=== PATIENT | female | born 1950 | race Caucasian/White ===

== ENCOUNTER 2019-12-17 10:31 | Outpatient (CLI) | payer MEDICARE, SELFPAY ==
--- NOTE | ~2019-12-17 | XR_ITS ---
EXAMINATION: XR lumbar spine 2-3V DATE: 12/17/2019 11:19 INDICATION: Age-related osteoporosis TECHNIQUE: Anteroposterior and lateral views of the lumbar spine, and cone-down lateral view of the l umbosacral junction were obtained. COMPARISON: CT, 02/05/2014 FINDINGS: There is no fracture, dislocation, or subluxation. The vertebral body heights and alignment are normal. There is mild loss of intervertebral disc space height throughout the lumbar spine. Ther e is severe facet osteoarthritis of the lower lumbar spine. The bowel gas pattern is normal. IMPRESSION: 1. Mild to moderate lumbar spondylosis without acute findings or significant interval change. Reviewed, dictated and finalized at location A. IMPRESSION: 1. Mild to moderate lumbar spondylosis without acute findings or significant in terval change.
--- NOTE | ~2019-12-17 | XR_ITS ---
EXAMINATION: XR thoracic spine 2V DATE: 12/17/2019 11:19 INDICATION: Age-related osteoporosis without pathological fracture TECHNIQUE: AP, lateral and lateral swimmer's views of the thoracic spine were obtained. COMPARISON: 09/27/2017 FINDINGS: There is mild thoracic dextrocurvature. There is no fracture. Vertebral body alignment is n ormal. There is mild loss of intervertebral disc space height in the midthoracic spine. Small degener ative osteophytes project from the anterior endplates of multiple vertebral bodies. Moderate cervical spondylosis is also noted. IMPRESSION: 1. Moderate thoracic spondylosis without acute findings. Reviewed, dictated and finalized at location A.
== END 2019-12-17 10:32 | disposition home or self-care (01) ==
LOC: ANHIMG 10:46
PROVIDERS: PCP Family Medicine
DX: M81.0 Age-related osteoporosis without current pathological fracture (principal); M47.896 Other spondylosis, lumbar region; M47.894 Other spondylosis, thoracic region
CPT/HCPCS: 72070; 72100

== ENCOUNTER → 2020-11-16 12:47 | Outpatient (CLI) | payer MEDICARE, SELFPAY ==
--- NOTE | ~2020-11-16 | MM_ITS ---
EXAMINATION: MM screening [facility] BI w maryse HISTORY: Screening TECHNIQUE: Craniocaudal and mediolateral oblique 3-D tomosynthesis images were obtained and synthetic 2-D images were generated. CAD analysis was submitted and interpreted. COMPARISON: Comparison to multiple prior studies sequentially, with oldest reviewed study dated 08/14. BREAST PARENCHYMAL COMPOSITION: The breasts are heterogeneously dense, which may obscure small masses . FINDINGS: There is no evidence of suspicious mass, calcification, or architectural distortion to sugg est malignancy in either breast. There has been no suspicious interval change. IMPRESSION: 1. No mammographic evidence of malignancy. 2. Recommend routine screening mammography in one year. BI-RADS Category 1: Negative Reviewed, dictated and finalized at location A.
== END ==
PROVIDERS: Visit Provider Obstetrics & Gynecology
DX: Z12.31 Encounter for screening mammogram for malignant neoplasm of breast (principal)
CPT/HCPCS: 77063; 77067

== ENCOUNTER → 2022-02-08 12:28 | Outpatient (CLI) | payer MEDICARE, SELFPAY ==
--- NOTE | ~2022-02-08 | MM_ITS ---
EXAMINATION: MM screening [facility] BI w maryse HISTORY: Screening TECHNIQUE: Craniocaudal and mediolateral oblique 3-D tomosynthesis images were obtained and synthetic 2-D images were generated. CAD analysis was submitted and interpreted. COMPARISON: Comparison to multiple prior studies sequentially, with oldest reviewed study dated 09/2012. BREAST PARENCHYMAL COMPOSITION: The breasts are heterogeneously dense, which may obscure small masses . FINDINGS: There is no evidence of suspicious mass, calcification, or architectural distortion to sugg est malignancy in either breast. There has been no suspicious interval change. IMPRESSION: 1. No mammographic evidence of malignancy. 2. Recommend routine screening mammography in one year. BI-RADS Category 1: Negative Reviewed, dictated and finalized at location A.
== END ==
PROVIDERS: PCP Nurse Practitioner Obstetrics & Gynecology; Visit Provider Nurse Practitioner Obstetrics & Gynecology
DX: Z12.31 Encounter for screening mammogram for malignant neoplasm of breast (principal)
CPT/HCPCS: 77063; 77067

== ENCOUNTER 2022-11-15 01:33 | Day surgery (SDC) | payer MEDICARE, SELFPAY ==
[2022-10-29 13:35] VITALS: BMI 26.4
[2022-11-15 07:53] VITALS: BP 144/78; PULSE 83; RESP 18; TEMP 36.5; O2SAT 98
[2022-11-15] MEDS: LACTATED RINGERS 1,000 ML 150 ML IV CONT (08:05)
--- NOTE | 2022-11-15 08:20 | P.HP_ITS ---
History of Present Illness History of Present Illness Consent: Risks, benefits, and alternatives have been discussed and questions answered. Patient agrees to proceed with procedure. Chief complaint: neoplasm screening Narrative: Prema Torres is a 72 year old female Presents for screening colonoscopy. Patient's current weight appetite and bowel movements are normal. She denies abdominal pain. She has had no bleeding. Family history is noncontributory. Previous colonoscopy was unremarkable. Patient does report a prior history of diverticulitis that is resolved with no residual abdominal pain. Review of Systems Review of Systems: Review of systems noncontributory. [facility] Family History Family History (System 03/08/20 @ 10:01 by Phuong Todd) Grandparent Family history of malignant neoplasm Social History Social History (System 03/08/20 @ 10:01 by Phuong Todd) Smoking packs per day: 1 Smoking cigarettes per day: 20.0 Years smoked: 10 Smoking pack-years: 10.00 Smoking status: Former smoker Tobacco type: cigarettes Second hand tobacco smoke exposure: No Smoking end date: 06/17/82 Alcohol intake: current Alcohol use details: 1-wine on occasion Substance use: never Substance use type: does not use Living arrangements: with family Spiritual care concerns: No Meds Home Medications and Allergies Home Medications Medication Instructions Recorded Confirmed Type Vitamin D3 2,000 mg PO DAILY 10/29/22 10/29/22 History magnesium 400 mg PO DAILY 10/29/22 10/29/22 History Allergies Allergy/AdvReac Type Severity Reaction Status Date / Time Sulfa (Sulfonamide Allergy Unknown Skin Verified 11/15/22 07:52 Antibiotics) irritation nickel Allergy Rash Verified 11/15/22 07:52 Vital Signs Vital Signs - 24 hr 11/15/22 07:53 Temperature 97.7 F Pulse Rate 83 Respiratory Rate 18 Blood Pressure 144/78 H Pulse Oximetry 98 Oxygen Delivery Room Air Exam Narrative: Physical exam reveals patient to be alert. Vital signs stable. HEENT exam is unremarkable. Patient is anicteric. Lungs are clear to auscultation and percussion. Heart is without murmur or extra sounds. Abdomen bowel sounds are present soft nontender with no organomegaly. Digital external rectal exam is normal Assessment and Plan Assessment and plan (1) Encounter for screening colonoscopy: Code(s): Z12.11 - Encounter for screening for malignant neoplasm of colon Status: Acute Assessment and Plan: patient presents today for screening colonoscopy. She appears to be at average risk for colon polyps. Further recommendations may be given after endoscopy.
--- NOTE | 2022-11-15 08:55 | P.PNAN_ITS ---
Anes - Initial Pre Proc Eval Procedure: Operation Date: 11/15/22 09:15 Proposed Procedures p Screening Colonoscopy - Mckinley Thompson MD Date/Time: 11/15/22 08:55 Surgeon: Mckinley Thompson MD Pre Op Diagnosis: neoplasm screening Patient Data Age: 72 Gender: F Height: 1.63 m Weight: 71.2 kg Last Vital Signs Temp 97.7 F 11/15/22 07:53 Pulse 83 11/15/22 07:53 Resp 18 11/15/22 07:53 BP 144/78 H 11/15/22 07:53 Pulse Ox 98 11/15/22 07:53 O2 Del Method Room Air 11/15/22 07:53 Allergies Allergy/AdvReac Type Severity Reaction Status Date / Time Sulfa (Sulfonamide Allergy Unknown Skin Verified 11/15/22 07:52 Antibiotics) irritation nickel Allergy Rash Verified 11/15/22 07:52 Home Medications Medication Instructions Recorded Confirmed Type Vitamin D3 2,000 mg PO DAILY 10/29/22 10/29/22 History magnesium 400 mg PO DAILY 10/29/22 10/29/22 History Patient hx anesthesia problems: none Family hx anesthesia problems: none Results Review: All pre-operative results and documents have been reviewed as part of the pre- operative evaluation. [facility] Family History Family History (System 03/08/20 @ 10:01 by Phuong Todd) Grandparent Family history of malignant neoplasm Social History Social History (System 03/08/20 @ 10:01 by Phuong Todd) Smoking packs per day: 1 Smoking cigarettes per day: 20.0 Years smoked: 10 Smoking pack-years: 10.00 Smoking status: Former smoker Tobacco type: cigarettes Second hand tobacco smoke exposure: No Smoking end date: 06/17/82 Alcohol intake: current Alcohol use details: 1-wine on occasion Substance use: never Substance use type: does not use Living arrangements: with family Spiritual care concerns: No Anes - Eval Final PreProcedure Day of Procedure 11/15/22 08:55 Patient weight: normal Heart: regular rate and rhythm Lungs: clear to auscultation Airway: Mallampati scale class II Neurological: alert and oriented Last oral intake: >/= 8 hours ASA classification: II Emergent: no Anesthetic plan: proceed Anesthesia type and monitoring: general GIVS and standard monitoring Results Review: All pre-operative results and documents have been reviewed as part of the pre- operative evaluation. Informed Consent: The patient's anesthetic plan and its attendant risks and benefits were discussed with the patient/family/POA. Questions were solicited and answers provided to the satisfaction of the patient/family/POA.
[2022-11-15 09:27] VITALS: BP 123/50; PULSE 65; RESP 20; O2SAT 98
[2022-11-15 09:37] VITALS: BP 132/73; PULSE 71; RESP 17; O2SAT 97
[2022-11-15 09:47] VITALS: BP 140/73; PULSE 68; RESP 12; O2SAT 97
== END 2022-11-15 09:59 | disposition home or self-care (01) ==
PROVIDERS: PCP Family Medicine Sports Medicine; Visit Provider Internal Medicine Gastroenterology
PROC: 0DJD8ZZ Inspection of Lower Intestinal Tract, Via Natural or Artificial Opening Endoscopic (ICD-10-PCS; CPT 45378; principal; 2022-11-15 09:15)
DX: Z12.11 Encounter for screening for malignant neoplasm of colon (principal); D12.8 Benign neoplasm of rectum; K62.1 Rectal polyp; K57.30 Diverticulosis of large intestine without perforation or abscess without bleeding; K64.8 Other hemorrhoids; Z87.891 Personal history of nicotine dependence
CPT/HCPCS: 45380; 45385; 88305; J2704; J7120

== ENCOUNTER → 2023-08-19 11:15 | Outpatient (CLI) | payer MEDICARE, SELFPAY ==
--- NOTE | ~2023-08-19 | MM_ITS ---
EXAMINATION: MM screening [facility] BI w maryse HISTORY: Screening mammogram TECHNIQUE: Craniocaudal and mediolateral oblique 3-D tomosynthesis images were obtained and synthetic 2-D images were generated. CAD analysis was submitted and interpreted. COMPARISON: 02/08/2022, 11/16/2020 bilateral screening mammogram examinations BREAST PARENCHYMAL COMPOSITION: The breasts are heterogeneously dense, which may obscure small masses . FINDINGS: There is evidence of bilateral breast masses. The largest situated in the lower outer left breast at mid depth, with circumscribed margins, measuring up to 1.7 cm, with halo sign, likely benig n, probably a cyst. A rounded approximately 6 mm opacity is noted in the mid outer left breast. Suggestion of an approximately 6 mm mass situated anteriorly in the upper mid outer right breast (MLO Tomosynthesis image 30/78). Possible 7.5 mm mass in the lower outer right breast (MLO Tomosynthesis image 29/78). The heterogeneously dense stroma may obscure additional masses. Bilateral diagnostic mammography and bilateral breast ultrasound examination are recommended. IMPRESSION: 1. Suggestion of bilateral breast masses 2. Bilateral diagnostic mammography and bilateral breast ultrasound examination are recommended BI-RADS Category 0: Incomplete: Needs additional imaging evaluation. Reviewed, dictated and finalized at location A. ORATE QUALITY ENGINEER
== END ==
PROVIDERS: PCP Nurse Practitioner Obstetrics & Gynecology; Visit Provider Nurse Practitioner Obstetrics & Gynecology
DX: Z12.31 Encounter for screening mammogram for malignant neoplasm of breast (principal); R92.8 Other abnormal and inconclusive findings on diagnostic imaging of breast
CPT/HCPCS: 77063; 77067

== ENCOUNTER 2023-09-24 09:16 | Outpatient (CLI) | payer MEDICARE, SELFPAY ==
--- NOTE | ~2023-09-24 | MM_ITS ---
EXAMINATION: MM diagnostic [facility] BI w maryse HISTORY: Suggestion of bilateral breast masses on 08/19/2023 bilateral screening mammogram TECHNIQUE: Additional 3-D tomosynthesis images of both breasts were performed and synthetic 2-D image s were generated. CAD analysis was submitted and interpreted. High resolution complete bilateral dalia st ultrasound examination including all 4 quadrants and subareolar areas was performed. COMPARISON: 08/19/2023 bilateral screening mammogram FINDINGS: MAMMOGRAPHIC FINDINGS: 1.4 cm circumscribed opacity is noted in the left breast in the lower outer quadrant. More posteriorl y in the lower outer mid left breast is a 7 mm circumscribed opacity. Additional masses may be obscured by the heterogeneously dense stroma of the breast. ULTRASOUND: Right breast: Multiple scattered simple cysts are noted, the largest measuring up to 1.1 cm, situated at 12:00 3 cm from the nipple. There is a 2.3 x 4.8 mm probable complicated cyst at 3:00 subareolar area. Left breast: There are multiple scattered left breast cysts, the largest situated at 4:00 5 cm from the nipple, me asuring up to 1.4 x 1 x 1.8 cm, with through transmission posterior enhancement. Probable complicated cyst at 3:00 5 cm from the nipple, measuring up to 5 mm depth, 4.5 mm width, wit h through transmission posterior enhancement. IMPRESSION: 1. Probable benign findings, including probable complicated cyst of right breast at 3:00 subareolar a madhav and left breast at 3:00 5 cm from nipple 2. Six-month bilateral targeted ultrasound follow-up of right breast at 3:00 subareolar area and left breast 3:00 5 cm from nipple is recommended. BI-RADS category 3, probably benign findings. Reviewed, dictated and finalized at location A. IMPRESSION: 1. Probable benign findings, including probable complicated cyst of right breas t at 3:00 subareolar area and left breast at 3:00 5 cm from nipple 2. Six-month bilateral targeted ultrasound follow-up of right breast at 3:00 garber bareolar area and left breast 3:00 5 cm from nipple is recommended. BI-RADS category 3, probably benign findings.
--- NOTE | ~2023-09-24 | US_ITS ---
US breast BI complete DATE: 09/24/2023 10:45 Please refer to the September 24, 2023 combined bilateral diagnostic mammogram and bilateral complete dalia [address] ultrasound report. IMPRESSION: BI-RADS Category 3: Probably benign Recommendation: Bilateral targeted breast ultrasound follow-up in 6 months Reviewed, dictated and finalized at Location A. Reviewed, dictated and finalized at location A.
== END 2023-09-24 09:17 ==
LOC: MICIMG 09:17
PROVIDERS: PCP Nurse Practitioner Obstetrics & Gynecology; Visit Provider Nurse Practitioner Obstetrics & Gynecology
DX: R92.8 Other abnormal and inconclusive findings on diagnostic imaging of breast (principal)
CPT/HCPCS: 76641; 77062; 77066; G0279

== ENCOUNTER 2025-05-19 09:22 | Outpatient (CLI) | payer MEDICARE, SELFPAY ==
--- OUTSIDE RECORDS SUMMARY | 2020-11-15 23:00 | XMS_ITS | Encounter Summary ---
Author Organization [facility] Healthcare Address [address] [place] [address] Care Team Providers Care Central Office Repairer Supervisor Name Role Phone Shaina Richard MD Primary Care Provider [phone] Reason for Visit * Diagnostic Imaging (Routine) - Closed Specialty Diagnoses / Procedures Referred By Contac t Referred To Contact Procedures Breast Imaging Screening Outside Reference Brenda Spence NP [address] [facility] [id number] [place] [address] Phone: tel: fax: Referral ID Status Reason Start Date Expiration Date Visits Re quested Visits Authorized [id number] Closed 10/25/2023 11/23/2024 1 1 Encounter Details Date Type Department Care Team (Late st Contact Info) Description 11/16/2020 Hospital Encounter [facility] [address] [place] [id number] Social History Tobacco Use Types Packs/Day Years Used Date Smoking Tobacco: Former Cigarettes 0.5 10 0 06/17/1975 - 1985 Smokeless Tobacco: Never Alcohol Use Standard Drinks/Week Comments Yes 0 (1 standard drink = 0.6 oz pur e alcohol) socially AUDIT-C Answer Date Recorded Q1: How often do you have a drink containing alc ohol? 2-4 times a month 05/30/2022 Q2: How many drinks containi ng alcohol do you have on a typical day when you are drinking? 1 or 2 05/30/2022 Q3: How often do you have si x or more drinks on one occasion? Never 05/30/2022 PHQ-2 Answer Date Recorded PHQ-2 Total Score (If total score is 3 or more points, staff should administer the PHQ-9) 0 06/04/2023 Comments No Sex and Gender Information Value Date Recorded Sex Assigned at Not on file Legal Sex Female 10:02 AM INTEGRATED CIRCUIT DESIGN ENGINEER Gender Identity Female 05/17/2025 6:44 AM INTEGRATED CIRCUIT DESIGN ENGINEER Sexual Orientation Not on file documented as of this encounter Functional Status * In the past year, patient experienced: Question Answer Date of Assessment Author Has trouble stepping up onto a curb 0 05/30/2022 1:09 PM Martine Sesay Ma, MA Advised to use a cane or walker to get around safely 0 05/30/2022 1:09 PM Rosibel Sesay MA Often has to james to the toilet 0 05/30/2022 1:09 PM Martine Sesay Ma, MA Feels unsteady when walking 0 05/30/2022 1: 09 PM Martine Sesay MA Has lost some feeling in feet 0 05/30/2022 1:09 PM Martine Sesay MA Steadies self on furniture while walking at home 0 05/30/2022 1:09 PM Martine Sesay MA Takes medicine that makes him/her feel lightheaded or more tired than usual 0 05/30/2022 1:09 PM Martine Sesay MA Worried about falling 0 05/30/2022 1:09 PM Martine Sesay MA Takes medicine to sleep or improve mood 0 05/30/2022 1:09 PM Martine Sesay Ma, MA Needs to push with hands whe n rising from a chair 0 05/30/2022 1:09 PM Martine Sesay Ma, MA Often feels sad or depressed 0 05/30/2022 1 :09 PM Martine Sesay MA STEADI Score Total 0 05/30/2022 1:09 PM INTEGRATED CIRCUIT DESIGN ENGINEER Martine Johnson MA * Question Answer Date of Assessment Author One or more falls in the las t year 0 06/04/2023 9:19 AM Amy Peraza MD * BP Location Answer Date of Assessment Author Left arm 12/30/2024 11:31 AM CDT ProctorMichelle pereatracie hammond * AUDIT-C Score Answer Date of Assessment Author 2 05/30/2022 1:34 PM Amy Isidro MD * Alcohol Use Question Answer Date of Assessment Author Q1: How often do you have a drink containing alcohol? 2-4 times a month 05/30/2022 1:34 PM Amy Peraza MD Q2: How many drinks containing alcohol do you have on a typical day when you are drinking? 1 or 2 05/30/2022 1:34 PM Amy Peraza MD Q3: How often do you have six or more drinks on one occasion? Never 05/30/2022 1:34 PM Amy Peraza MD * BP Location Answer Date of Assessment Author Left arm 12/30/2024 11:31 AM CDT Miguel A Ravindra hammond documented as of this encounter Plan of Treatment Not on file documented as of this encounter Procedures Procedure Name Priority Date/Time Associated Diagnosis Comments BREAST IMAGING MG SCREENING OUTSIDE REFERENCE Routine 11/16/2020 12:00 AM CDT documented in this encounter Results * Breast Imaging Screening Outside Reference (11/16/2020 12:00 AM CDT) Impressions [facility] - 10/25/2023 5:57 PM CDT These images are for Reference purposes only and have not been reviewed by [facility] Radiology. There will be no report generated by a [facility] Radiologist. Narrative [facility] - 10/25/2023 5:57 PM CDT EXAMINATION: Images For Reference Purposes Only us Brenda Spence NP IMG MAMMO PROCEDURES Final Result [facility] documented in this encounter Visit Diagnoses Not on filedocumented in this encounter Care Teams Central Office Repairer Supervisor Relationship Specialty Start Date End Date Shaina Richard MD PCP - General Family Practice 12/12/19 05/29/22 documented as of this encounter
--- OUTSIDE RECORDS SUMMARY | 2025-05-19 09:30 | XMS_ITS | Encounter Summary ---
Author Organization [facility] Address [address] [place] [id number] Phone Care Team Providers Care Social Media Assistant Name Role Phone Amy Hay MD Primary Care Provider Luis Mcelroy MD Unavailable [phone] Tori Ornelas NP Unavailable [phone] Reason for Referral * Diagnostic Imaging (Routine) - Authorized Specialty Diagnoses / Procedures Referred By Contac t Referred To Contact Diagnoses Age-related osteoporosis without current pathological fracture Procedures Dexa TBS Axial Skeleton Bone Density 1 or more sites Luis Mcelroy MD [address] [address] Phone: tel: fax: [facility] (All Locations) Referral ID Status Reason Start Date Expiration Date V isits Requested Visits Authorized [id number] Authorized 04/28/2025 05/28/2026 12 12 ACE COMBUSTION ANALYST Reason for Visit * Reason Comments Osteopenia * Consultation (Routine) - Authorized Specialty Diagnoses / Procedures Referred By Contac t Referred To Contact Bone Health Diagnoses Age-related osteoporosis without current pathological fracture Referral, Self [facility] (All Locations) Referral ID Status Reason Start Date Expiration Date Visits Requested Visits Authorized [id number] Authorized Specialty Services Required 03/22/2025 04/21/2026 12 12 Encounter Details Date Type Department Care Team (Latest Contact Info) Description 05/19/2025 9:30 AM FURNACE COMBUSTION ANALYST Clinical Support [facility] [address] [facility] [address] [place] [address] [place] [address] Age-related osteoporosis without current pathological fracture Social History Tobacco Use Types Packs/Day Years [...] on file Legal Sex Female 10:02 AM FURNACE COMBUSTION ANALYST Gender Identity Female 05/17/2025 6:44 AM FURNACE COMBUSTION ANALYST Sexual Orientation Not on file documented as of this encounter Plan of Treatment Pending Results Name Type Priority Associated Diagnoses Date /Time Dexa TBS Axial Skeleton Bone Density 1 or more sites Imaging Schedule Routine, Read Routine (OP Routine) Age-related osteoporosis without current pathological fracture 05/19/2025 10:07 AM FURNACE COMBUSTION ANALYST Scheduled Orders Name Type Priority Associated Diagnoses Orde r Schedule Dexa TBS Axial Skeleton Bone Density 1 or more sites Imaging Schedule Routine, Read Routine (OP Routine) Age-related osteoporosis without current pathological fracture Expected: 04/28/2025, Expires: 04/28/2026 documented as of this encounter Visit Diagnoses Diagnosis Age-related osteoporosis without current pathological fracture documented in this encounter Care Teams Social Media Assistant Relationship Specialty Start Date End Date Amy Hay MD PCP - General Family Practice 05/30/22 Luis Mcelroy MD Consulting Physician Bone Health 05/30/22 Tori Ornelas NP Nurse Practitioner Obstetrics and Gynecology 05/30/22 documented as of this encounter
--- OUTSIDE RECORDS SUMMARY | 2025-05-19 10:00 | XMS_ITS | Encounter Summary ---
Author Organization [facility] Address [address] [place] [address] Phone Care Team Providers Care Car Lot Attendant Name Role Phone Amy Hay MD Primary Care Provider Luis Mcelroy MD Unavailable [phone] Tori Ornelas NP Unavailable [phone] Reason for Visit * Reason Comments Osteoporosis * Consultation (Routine) - Authorized Specialty Diagnoses / Procedures Referred By Contac t Referred To Contact Bone Health Diagnoses Age-related osteoporosis without current pathological fracture Referral, Self [facility] (All Locations) Referral ID Status Reason Start Date Expiration Date Visits Requested Visits Authorized [id number] Authorized Specialty Services Required 03/22/2025 04/21/2026 12 12 Encounter Details Date Type Department Care Team (Late st Contact Info) Description 05/19/2025 10:00 AM LEAD INSTRUCTOR/FLIGHT ATTENDANT Office Visit [facility] [place] [facility] [address]th [place] [address] [place] [id number] Gen Morley NP [address] [address] Arrived Social History Tobacco Use Types Packs/Day Years [...] on file Legal Sex Female 10:02 AM LEAD INSTRUCTOR/FLIGHT ATTENDANT Gender Identity Female 05/17/2025 6:44 AM LEAD INSTRUCTOR/FLIGHT ATTENDANT Sexual Orientation Not on file documented as of this encounter Last Filed Vital Signs Vital Sign Reading Time Taken Comments Blood Pressure - - Pulse - - Temperature - - Respiratory Rate - - Oxygen Saturation - - Inhaled Oxygen Concentration - - Weight 76.3 kg (168 lb 3.2 oz) 05/19/2025 9:46 A M LEAD INSTRUCTOR/FLIGHT ATTENDANT Height 160.5 cm (5' 3.2) 05/19/2025 9:46 AM LEAD INSTRUCTOR/FLIGHT ATTENDANT Body Mass Index 29.61 05/19/2025 9:46 AM LEAD INSTRUCTOR/FLIGHT ATTENDANT documented in this encounter Patient Instructions * Patient Instructions* Gen Morley NP - 05/19/2025 10:00 AM LEAD INSTRUCTOR/FLIGHT ATTENDANT Bone [facility] Program Discharge and Information Sheet Contact: Call: [phone] or [phone] FAX: [phone] Name: Prema Torres Thank you for choosing the [facility] for consultation about your bone health! We hope that your experience with our program was informative, pleasant, and valuable. Following are a set of instructions that we ask you to read carefully and follow so that the recommenda tions you have received can be correctly implemented. PLAN: the following has been recommended as treatment for your bone health - Tymlos (daily subcutaneous injections) - See further instructions below - Calcium 3572-1616 mg daily, through a combination of diet and supplements - Vitamin D 2000 IU daily - Weight bearing activity as tolerated (Walking is great!) - Fall prevention: be cautious in the winter months with regards to ice, snow and other slippery conditions both outside, in entry ways and in public buildings; use railings on stairs; remove unnecessary trip hazards from the home such as loose electrical cords and throw rugs - Please call the office with any new fracture or initiation of prednisone - Doctors visit and Bone Density Exam in 1 year Follow Up Appointment: Please stop at the front facer to make a follow-up appointment in 1 year or call [phone]. Every attempt will be made to schedule the follow-up appointment at the physician's recommended time point. Lab Test Results: If you have been given lab orders to have your blood drawn, please allow for a few days for the results to come back and your physician review them. Results are viewable by you in My Chart as soon as they become available. Your provider may add some comments as well. If you have not received your results or have not heard back from us after two weeks since your blood was drawn, please feel free to give our office a call at [phone] option # 1. Bone Density Testing: To ensure the best quality of care, we strongly recommend you have all your follow up bone density tests done at our center. Bone density tests cannot be compared between different facilities. If another physician requests a bone density test for you, please let her/him know that your bone density is being monitored by the [facility]. If your other providers have questions or would like a report of your bone density scans, they can contact [facility] [phone] or Medical Records at [phone]. Important! Always remember to stop taking your calcium supplements 24 hours before you are scheduled to have your bone density test at your next visit. If you need to make changes to your follow-up appointment or are running late to your visit at the [facility] Program, please contact us as soon as possible at [phone] ([facility]), or [phone] ([facility]), or [phone] ([facility]). We work on a very tight schedule and depending on the circumstances it may be necessary to resched ule your appointment if no other time slot is available on the same day. [employer] patient portal allows you to view your medical records, test results, personal information,request prescription renewals, review past appointments, request new ones and securely communicate online with our office. Ask at the hotel or motel receptionist desk about receiving an invite to join [employer] portal. For questions about accessing [employer] patient portal call [phone]. Feel free to visit our web site for further information on medications, diet, exercise and other things you can do to take charge of your bone health: [email or web address] Thank you for choosing the [facility]! Your Provider has recommended Tymlos (abaloparatide). It is a daily injection that you administer to yourself using a pre-loaded pen-like device (like insulin pens). It is subcutaneous and done into the abdominal region. The usual maximum lifetime length of therapy for this medication is 2 years. Your Provider should be aware if you were previously treated with Tymlos or a similar medication called Forteo (teriparatide). Your Provider should have let you know if there are any labs that need to be completed before scheduling. Your Provider should be aware if you were ever diagnosed with cancer, Paget??s disease of the bone or were treated with any form of radiation therapy. After completion of the prescribed therapy plan, your Provider will inform you about the possible options for continuing treatment. General Info: You will schedule a time to meet with one of our Medical Assistants for injection training. Each Tymlos Pen is good for 30 days. The 30 days starts on the day you administer the first injection. The 30 days starts on the day you administer the first injection. You must start a new pen afterthe 30th day regardless if you missed any injections. For example, if you forget to give yourself an injection on day 4 and day 15 those days still count towards your 30 days for the pen. After the 30-day use period, discard the pen, even if it still contains unused solution. Tymlos must stay refrigerated until you start the injections. Once you have administered your firstinjection then the pen can stay out at room temperature. You must prime the pen before giving yourself the first injection. This is the only time the pen will need to be primed. Sterile needles are not included, and your Provider will also prescribe them. Scheduling/Insurance Information: Every Tymlos prescription requires a Prior Authorization regardless of the Insurance. Our Pharmacy Prior Authorization team will work to obtain a Prior Authorization from your InsuranceCompany. This can take up to 30 days. Once the Prior Authorization has been approved a prescription will be sent to the preferred pharmacy. The office will contact you to let you know that the prescription was sent to the pharmacy. The pharmacy will be able to tell you what your copay cost will be. If you have not heard from the office in 1-2 weeks please contact us by sending a [employer] message or calling [phone]. Sometimes even with a Prior Authorization approval your copay could still be a significant amount. If you have a Commercial Insurance, there is a Copay Assistance Program. You can find the cost information and the savings card on the website http://[employer]. If you have a Medicare Insurance, you can apply for financial assistance. This information can be found on the website http://[employer]. There is an application that must be filled out. Each application has a portion for the patient to fill out and a portion for the Provider's office to fill out. You can print the patient portion from the website, or you can request for our office to mail a copyto your home. Our office has the Provider portion that can be filled out and signed by your physician. Once both parts have been sent, you will be notified if you qualify. If you qualify, the PatientAssistance Program will send your prescription to the pharmacy. If you do not qualify, please contact our office. What should I expect from Tymlos (abaloparatide) injections? Tymlos (abaloparatide) is a small molecule that in part resembles the natural hormone, parathyroid hormone-related peptide, and it directly stimulates bone building cells (osteoblasts) to produce more bone. This results in an increase in bone density. For the first several doses, Tymlos should be administered in a place where the patient can sit or lie down if necessary. Take it at about the same time each day. The most common side effect is leg cramps, which can be minimized by taking the injection before going to sleep. Other less frequent, minor side effect may be nausea. Be sure to stay well hydrated to avoid any risk of having kidney stones. Tell your doctor if you have any side effect that bothers you or that does not go away after receiving the injection. Use a new pen needle for each injection. Keep the cap on when not using the pen. Do not dispose of your used sharps disposal container in your household trash. Additional information can be found at: [email or web address]; and http://[employer] INSTRUCTOR/FLIGHT ATTENDANT documented in this encounter Plan of Treatment Not on file documented as of this encounter Visit Diagnoses Not on filedocumented in this encounter Orders Outpatient Referral Count Last Ordered Date Fir st Ordered Date AMB REFERRAL TO [facility] 1 05/19/2025 documented in this encounter Care Teams Car Lot Attendant Relationship Specialty Start Date End Date Amy Hay MD PCP - General Family Practice 05/30/22 Luis Mcelroy MD Consulting Physician Bone Health 05/30/22 Tori Ornelas NP Nurse Practitioner Obstetrics and Gynecology 05/30/22 documented as of this encounter
--- OUTSIDE RECORDS SUMMARY | 2025-05-19 10:21 | XMS_ITS | Clinical Summary ---
Author Organization [facility] Address [address] [place] [address] Care Team Providers Care Um Nurse Name Role Phone Unavailable Primary Care Provider Unavailabl e Source Comments [facility],non-owned Affiliates and Associated Physician Practices is amultiple site organization consisting of ambulatory clinics and hospital sitesin [place], [place], [place] and [place]. This disclosure is being madepursuant to the Care Everywhere program and may not contain all information available regarding this patient. Last updated 18.[facility] Social History Tobacco Use Types Packs/Day Years Used Date Smoking Tobacco: Never Assessed Comments Unknown Sex and Gender Information Value Date Recorded Sex Assigned at Not on file Legal Sex Female 8:31 AM CDT Gender Identity Not on file Sexual Orientation Not on file Plan of Treatment Health Maintenance Due Date Last Done Comments BONE DENSITY TESTING 1950 COLOGUARD (AGES 45-75) - COL ON CA SCREENING 1952 COLON MONITORING 1952 COLONOSCOPY - COLON CA SCREENING 1952 CT COLONOGRAPHY - COLON CA SCREENING 1950 Colorectal Cancer Screening 1952 FIT - COLON CA SCREENING 1952 FLEX SIG - COLON CA SCREENING 1952 LIPID TESTING 1950 MAMMOGRAM 1952 HEPATITIS C SCREENING 09/10/1970 DTAP/TDAP/TD VACCINES (1 - Tdap) 09/15/1971 PNEUMOCOCCAL VACCINE 50+ (1 of 1 - PCV) 2002 ZOSTER VACCINE (1 of 2) 2002 DEPRESSION SCREENING 06/17/2024 MEDICARE AWV CALENDAR YEAR 2024 COVID-19 VACCINE (1 - 2024-2 6 season) 2025 INFLUENZA VACCINE (#1) 2025 Respiratory Syncytial Virus (RSV) Vaccine Pt: or over 60 yrs (1 - 1-dose 75+ series) 09/15/2027 HEPATITIS B VACCINE Aged Out No longe r eligible based on patient's age to complete this topic HIB VACCINE Aged Out No longer eligi ble based on patient's age to complete this topic HPV VACCINE Aged Out No longer eligi ble based on patient's age to complete this topic MENINGOCOCCAL (Group B) VACC INE SHARED DECISION-MAKING Aged Out No longer eligibl e based on patient's age to complete this topic MENINGOCOCCAL GROUPS A/C/Y/W VACCINE Aged Out No longer eligible b ased on patient's age to complete this topic Insurance [employer] MEDICARE ADV MEDICARE
--- OUTSIDE RECORDS SUMMARY | 2025-05-19 10:21 | XMS_ITS | Clinical Summary ---
Author Organization [facility] Address [address] [place] [address] Phone Care Team Providers Care Asphalt Machine Operator Name Role Phone Caty Nunez MD Primary Care Provider [phone] Allergies Active Allergy Reactions Criticality Noted Date Comments Sulfa (Sulfonamide Antibiotics) Rash Low 08/2013 Medications naproxen sodium (ALEVE) 220 mg Capsule Take by mouth every 12 hours as needed. Active LACTOBACILLUS ACIDOPHILUS (PROBIOTIC ORAL) Take by mouth. Active ERGOCALCIFEROL, VITAMIN D2, (VITAMIN D ORAL) Take by mouth. Active Active Problems Patient Care Coordination No te Formatting of this note migh t be different from the original. Primary Care: Caty Nunez MD Referring Provider: Kassandra James MD [facility] [place] [address] Other: Problem Noted Date Diagnosed Date Cyst of right breast 11/01/2015 Diffuse cystic mastopathy 05/21/2014 Diverticulitis Osteoporosis Family History Medical History Relation Name Comments Breast Cancer Paternal Grandmother Ovarian Cancer Neg Hx Relation Name Status Comments Paternal Grandmother Social History Tobacco Use Types Packs/Day Years Used Date Smoking Tobacco: Former Cigarettes Smokeless Tobacco: Never Alcohol Use Standard Drinks/Week Comments Yes 0 (1 standard drink = 0.6 oz pur e alcohol) moderate Comments No Sex and Gender Information Value Date Recorded Sex Assigned at Not on file Legal Sex Female 3:23 PM CDT Gender Identity Not on file Sexual Orientation Not on file Occupation Industry Job Start Date Job End Date Not on file Not on file Not on file Not on file Last Filed Vital Signs Vital Sign Reading Time Taken Comments Blood Pressure 134/81 11/04/2015 10:04 AM CDT Pulse 70 11/04/2015 10:04 AM CDT Temperature - - Respiratory Rate - - Oxygen Saturation - - Inhaled Oxygen Concentration - - Weight 70.5 kg (155 lb 6.4 oz) 11/04/2015 10:04 AM CDT Height 161.3 cm (5' 3.5) 11/04/2015 10:04 AM CD T Body Mass Index 27.1 11/04/2015 10:04 AM CDT Plan of Treatment Health Maintenance Due Date Last Done Comments DTAP/TDAP/TD VACCINES (1 - Tdap) 09/15/1971 COLORECTAL SCREENING 1997 Colorectal Cancer Screening 1997 FIT-DNA Q 3 years 1997 FIT/FOBT Q 1 year 1997 Flex Sig/CT Colonography Q 5 years 1997 PNEUMOCOCCAL VACCINE 50+ YEA RS (1 of 1 - PCV) 2002 ZOSTER VACCINE (1 of 2) 2002 BREAST CANCER SCREENING 07/25/2016 07/25/19 16, 02/09/2014, 03/20/2013, Additional history exists OSTEOPOROSIS SCREENING 2017 INFLUENZA VACCINE (#1) 2025 RSV VACCINE (60+ or ) (1 - 1-dose 75+ series) 09/15/2027 Procedures Procedure Name Priority Date/Time Associated Diagnosis Comments MAMMO SCREEN BILAT W OR WO CAD Routine 07/25/2015 from Last 3 Months or Most Recently Relevant to Health Maintenance Results * MAMMO DIGITAL SCREEN BILAT (07/25/2015) Anatomical Region Laterality Modality Breast Bilateral Other us Nella GRANDE MAMMO ORDERABLES Edited Resu lt - Final from Last 3 Months or Most Recently Relevant to Health Maintenance Care Teams Asphalt Machine Operator Relationship Specialty Start Date End Date Caty Nunez MD [address] [place] [id number] PCP - General Family Practice 03/19/14
--- OUTSIDE RECORDS SUMMARY | 2025-05-19 10:21 | XMS_ITS | Clinical Summary ---
Author Organization [facility] Address [address] [place] [address] Care Team Providers Care Drafter Geological Name Role Phone Amy Hay MD Primary Care Provider Luis Mcelroy MD Unavailable [phone] Tori Ornelas ASSOCIATE QUALITY ENGINEER Unavailable [phone] Allergies Active Allergy Reactions Criticality Noted Date Comments Nickel Itching,Rash Medium 12/24/2017 Sulfa (Sulfonamide Antibiotics) Hives Medium Medications cholecalciferol (VITAMIN D-3) 2000 unit capsule Take 1 capsule (2,000 Units total) by mouth 2 (two) times a day Active pen needle, diabetic (BD Ultra-Fine Marie Pen Needle) 32 gauge x 5/32 needleIndication s:Age-related osteoporosis without current pathological fracture Use one needle daily with Forteo pen 100 each 1 4 Active Additional Information Patient not taking.Reported on 05/19/2025 teriparatide (FORTEO) 20 mcg/dose (600mcg/2.4mL) injectionIndicat ions:Age-related osteoporosis without current pathological fracture Inject 0.08 mL (20 mcg total) under the skin daily 2.4 mL 11 5 06/19/19 26 Active Additional Information Patient not taking.Reported on 05/19/2025 magnesium oxide 400 mg magnesium tablet Take 400 mg by mouth daily Active atorvastatin (LIPITOR) 10 mg tablet 5 Active famciclovir (FAMVIR) 500 mg tablet TAKE 3 TABLETS BY MOUTH AT ONSET OF SYMPTOMS 04/11/202 5 Active Active Problems Problem Noted Date Diagnosed Date Excessive sleepiness 11/21/2023 Age related osteoporosis 12/09/2014 Increased body mass index (BMI) 08/02/2014 Vitamin D deficiency disease 11/07/2012 Resolved Problems Problem Noted Date Diagnosed Date Resolved Date Diverticulitis of colon 08/02/201405/17 Diffuse cystic mastopathy 05/21/2014 Osteopenia 08/28/2012 05/30/2022 Encounters Date Type Department Care Team Description 05/19/2025 10:00 AM CANDLE MAKER Office Visit [facility] [address] [place] [address] [place] [address] Gen Morley, ALEXIA Arrived 05/19/2025 9:30 AM CANDLE MAKER Clinical Support [facility] [address] [place] [address] [place] [address] Age-related osteoporosis without current pathological fracture from Last 3 Months Immunizations Immunization Administration Dates Next Due COVID-19 MRNA (MODERNA) .5 M L (50 MCG) VACCINE (12 YEARS AND UP) 05/30/2023 Hep A / Hep B 03/31/2020,02/27/2019,01/27/2019 Influenza, Quad, Adjuvantate d, Intramuscular 04/19/2023,04/13/2022,04/13/2021,03/03 Influenza, Quadrivalent, Annalee l Culture-based MDCK, Preservative Free, Antibiotic Free, Intramuscular 02/06/2017 Influenza, Trivalent, Adjuva nted, Intramuscular 01/27/2019 Influenza, Trivalent, IM (MDV) 07/06/2014 Influenza, Trivalent, Preser vative Free, Intramuscular 03/03/2020 Moderna SARS-CoV-2 Monovalen t Vaccination (12+ YRS) 08/23/2020 Moderna Sars-cov-2 Bivalent Vaccine 50 Mcg/0.5 mL (12+ YRS)-Blue/Suarez 04/24/2022 Pneumococcal Conjugate PCV 13 03/30/2019 Pneumococcal Polysaccharide PPV23 04/20/2022 RSV Vaccine, Pref, Recombina nt, Subunit, Adjuvanted, PF, IM (Arexvy) 04/19/2023 Rabies Vaccine 02/24/2019,02/10/2019,02/03/2019 Rabies, Intradermal 02/24/2019,02/10/2019,2018 Stamaril Yellow Fever 02/24/2019 Tdap 02/24/2019 Typhoid Inactivated 01/27/2019 ZOSTER LIVE 09/22/2014 ZOSTER Recombinant 03/30/2019,01/23/2019 Surgical History Surgery Date Site/Laterality Comments TONSILLECTOMY Medical History Medical History Date Comments Diffuse cystic mastopathy 05/21/2014 Diverticulitis of colon 08/02/2014 Osteoporosis Tinnitus Chickenpox Family History Medical History Relation Name Comments Other Father spinal cord inj ury Depression Mother Lisa Lisandro Obesity Mother Lisa Lisandro Osteoporosis Mother Lisa Lisandro Other Mother Lisa Lisandro IBS Cancer Paternal Grandfather Breast cancer Paternal Grandmother Marya Mcmahon Colon cancer Neg Hx Hip fracture Neg Hx Relation Name Status Comments Father Mother Lisa Lisandro Alive Paternal Grandfather Paternal Grandmother Marya Mcmahon Social History Tobacco Use Types Packs/Day Years Used Date Smoking Tobacco: Former Cigarettes 0.5 10 0 06/17/1975 - 1985 Smokeless Tobacco: Never Tobacco Cessation:Counseling Given: Not Answered Alcohol Use Standard Drinks/Week Comments Yes 0 [...] on file Legal Sex Female 10:02 AM CANDLE MAKER Gender Identity Female 05/17/2025 6:44 AM CANDLE MAKER Sexual Orientation Not on file Obstetrics History Para Term AB IAB SAB Ectopic Multiple Livin g Live Births 5 4 Date Outcome GA Total Labor Labor/2nd/3rd Weight Sex Type Anes PTL Marjorie A1 A5 Name Clin Para Para Para Para Last Filed Vital Signs Vital Sign Reading Time Taken Comments Blood Pressure 136/81 12/30/2024 11:31 AM CDT Pulse 67 12/30/2024 11:31 AM CDT Temperature 36.4 C (97.5 F) 12/30/2024 11:31 AM CDT Respiratory Rate 14 11/01/2023 12:26 PM CDT Oxygen Saturation 99% 12/30/2024 11:31 AM CDT Inhaled Oxygen Concentration - - Weight 76.3 kg (168 lb 3.2 oz) 05/19/2025 9:46 A M CANDLE MAKER Height 160.5 cm (5' 3.2) 05/19/2025 9:46 AM CANDLE MAKER Body Mass Index 29.61 05/19/2025 9:46 AM CANDLE MAKER Plan of Treatment Health Maintenance Due Date Last Done Comments Hepatitis C Screening 1950 Depression Screening 06/04/2024 06/04/2023, 05/30/20 22 Fall Risk Assessment 06/04/2024 06/04/2023, 05/30/20 22 Well Visit 65+ 06/04/2024 06/04/2023, 05/30/2022 Covid-19 Vaccine (2024-2 6 season) 2025 05/30/2023, 04/24/2022, 11/23/2021, Additional history exists Breast Cancer Screening-Mammogram 12/30/2025 12/30/2024, 11/16/2020, 02/09/2014, Additional history exists Osteoporosis Screening-Bone Density Scan 05/12/2026 05/12/2024, 05/07/2023, 05/07/2023, Additional history exists Colon Cancer Screening-Colonoscopy 11/16/2027 12/15/2022, 08/04/2014 DTaP/Tdap/Td Vaccine (2 - Td or Tdap) 02/24/2029 02/24/2019 Colon Cancer Screening-CT Colonography Discontinued 08/04/2014 Colon Cancer Screening-DNA Stool Discontinued 08/04/19 Colon Cancer Screening-FIT Discontinued 08/04/2014 Colon Cancer Screening-Sigmoidoscopy Discontinued 08/04/2014 Zoster Vaccine Completed 03/30/2019, 0802/2019, 09/22/2014 Hepatitis B Screening Completed 03/31/2020 , 02/27/2019, 01/27/2019 Pneumococcal vaccine 65+ Completed 04/20/2022, 03/17 Influenza Vaccine Completed 02/20/2025, , 04/19/2023, Additional history exists Procedures Procedure Name Priority Date/Time Associated Diagnosis Comments SCREENING MAMMOGRAM BILATERAL W KEVON Schedule Routine, Read Routine (OP Routine) 12/30/2024 12:06 PM CDT Screening mammogram for breast cancer DEXA TBS AXIAL SKELETON BONE DENSITY 1 OR MORE SITES Schedule Routine, Read Routine (OP Routine) 05/12/2024 12:59 PM CANDLE MAKER Age-related osteoporosis without current pathological fracture COLONOSCOPY REPORT 08/04/2014 from Last 3 Months or Most Recently Relevant to Health Maintenance Results * Screening Mammogram Bilateral W Kevon (12/30/2024 12:06 PM CDT) Anatomical Region Laterality Modality Breast Bilateral Mammography Impressions 01/01/2025 11:15 AM CDT Bilateral No evidence of malignancy in either breast. OVERALL BI-RADS FINAL ASSESSMENT: 2 - Benign RECOMMENDATION: Recommend bilateral annual screening mammography. Narrative 01/01/2025 11:15 AM CDT EXAMINATION: Screening Mammogram Bilateral W Kevon: 12/30/2024 COMPARISON: Relevant prior studies available at the time of interpretation were reviewed, including the most recent mammogram on: 09/24/2023. TECHNIQUE: Mammography was performed with 2D and digital breast tomosynthesis (DBT) images. CAD was utilized. BREAST PARENCHYMAL COMPOSITION: The breasts are extremely dense, which lowers the sensitivity of mammography. FINDINGS: Bilateral There is no suspicious mass, calcification, or architectural distortion in either breast. There are multiple bilateral similar masses again noted.These are considered benign. Brenda Spence NP IMG MAMMO PROCEDURES Final Result * Dexa TBS Axial Skeleton Bone Density 1 or more sites (05/12/2024 12:59 PM CANDLE MAKER) Anatomical Region Laterality Modality Wrist, Body N/A Radiographic Starla ging Narrative 05/13/2024 10:41 AM CANDLE MAKER Patient Name: Prema Torres Date of : 1950 Date of scan: 05/12/2024 Bone mineral density was performed on a Holo[employer] Intimates Discovery Densitometer. Based on machine cross-calibration and precision studies the least significant changes of this densitometer is 0.024 g/cm2 at the spine, 0.020 g/cm2 at the total proximal femur, and 0.014g/cm2 at the forearm. HISTORY: This is a 73 y.o. postmenopausal female with a history of osteoporosis and vitamin D deficiency. She reports that she quit smoking about 38 years ago. Her smoking use included cigarettes. She started smoking about 48 years ago. She has a 5 pack-year smoking history. She has never used smokeless tobacco. Currently on treatment with vitamin D and previously treated with risedronate (Actonel) and zoledronic acid (Reclast). INDICATIONS: Menopause status, vitamin D deficiency, and history of osteoporosis. FINDINGS: BONE MINERAL DENSITY OF THE LUMBAR SPINE Bone Mineral Density (BMD) of the lumbar spine was measured from L1-L3 and the average density was calculated to be 0.786 gm/cm2. This corresponds to a T-score (standard deviations from the mean of young adults) of -2.1. When compared to the previous study of 05/07/2023 there has been no significant changes in bone density. BONE MINERAL DENSITY OF THE PROXIMAL FEMUR Bone Mineral Density (BMD) of the left hip total was found to be 0.794 gm/cm2. This corresponds to a T-score standard deviations from the mean of young adults of -1.2. Femoral neck is 0.704 gm/cm2 with a T-score (standard deviations from the mean of young adults) of -1.3. When compared to the previous study of 05/07/2023 there has been no significant changes in bone density. BONE MINERAL DENSITY OF THE FOREARM Bone Mineral density (BMD) of the left proximal 1/3 of the radius measures 0.550 gm/cm2. This corresponds to a T-score (standard deviations from the mean of young adults) of -2.4. When compared to the previous study of 05/07/2023 there has been a -0.041 gm/cm (-6.9%) decrease in bone density that is considered significant. A forearm bone density study was performed in addition to the routine study due to the need to provide a comparison to the previous exam and physician request. SUMMARY: Bone mineral density shows evidence of low bone mass at the lumbar spine, proximal femur, and forearm and moderately increased fracture risk (Osteopenia). There has been a significant decrease in bone density since previous measurement. L4 excluded from bone mineral density analysis of the lumbar spine due to bone density being more than 1 standard deviation discrepant relative to one adjacent vertebra. Clinical correlation is recommended. The lumbar spine Trabecular Bone Score is 1.300 which suggests partially degraded bone microarchitecture compared to the general population. Final decisions regarding diagnostic or therapeutic recommendations should include BMD, TBS, additional clinical risk factors as well the clinical context of the patient. Please see attached TBS results for further details. ADDITIONAL COMMENTS: Postmenopausal Women and Men Over 50: Diagnostic criteria: Osteoporosis: BMD at or below -2.5 T-score; Osteopenia (low bone mass): BMD between -1.0 and -2.5 T-score. If the patient has a history of a fragility fracture, a fracture that occurred with trauma equivalent to a fall from a standing position or less, then the diagnosis is osteoporosis regardless of bone density. The history and data sections of the bone mineral density scan were prepared by Gertrude Knutson(R) LARISA who is accredited by the International Society of Clinical Densitometry. The overall patient assessment and scan interpretation were performed by Luis Mcelroy M.D. who is certified by the International Society of Clinical Densitometry. [id number] Luis Mcelroy MD IM DXA PROCEDURES Final Result * COLONOSCOPY REPORT (08/04/2014) Anatomical Region Laterality Modality Other Narrative 08/04/2014 Ordered by an unspecified provider. Historical Provider GI PROCEDURE ORDERABLES F inal Result from Last 3 Months or Most Recently Relevant to Health Maintenance Insurance AETNA MEDICARE AETNA MEDICARE AETNA MEDICARE Care Teams Drafter Geological Relationship Specialty Start Date End Date Amy Hay MD PCP - General Family Practice 05/30/22 Luis Mcelroy MD Consulting Physician Bone Health 05/30/22 Tori Ornelas NP Nurse Practitioner Obstetrics and Gynecology 05/30/22
--- OUTSIDE RECORDS SUMMARY | 2025-05-19 10:21 | XMS_ITS | Encounter Summary ---
Author Organization [facility] Address [address] [place] [address] Phone Care Team Providers Care Currency Exchange Specialist Name Role Phone Shaina Richard MD Primary Care Provider [phone] Amy Hay MD Primary Care Provider Luis Mcelroy MD Unavailable [phone] Tori Ornelas NP Unavailable [phone] Encounter Details Date Type Department Care Team (Late st Contact Info) Description 12/17/2019 Orders Only [facility] Scanning, Provider Social History Tobacco Use Types Packs/Day Years Used Date Smoking Tobacco: Former Cigarettes Q uit: 1985 Smokeless Tobacco: Never Alcohol Use Standard Drinks/Week Comments Yes 0 (1 standard drink = 0.6 oz pur e alcohol) socially Comments Unknown Sex and Gender Information Value Date Recorded Sex Assigned at Not on file Legal Sex Female 10:02 AM NATURAL RESOURCES MANAGER Gender Identity Female 05/17/2025 6:44 AM NATURAL RESOURCES MANAGER Sexual Orientation Not on file documented as of this encounter Plan of Treatment Not on file documented as of this encounter Procedures Procedure Name Priority Date/Time Associated Diagnosis Comments SCAN - RADIOLOGY/IMAGING 12/17/2019 documented in this encounter Results * SCAN - RADIOLOGY/IMAGING (12/17/2019) Anatomical Region Laterality Modality Other us Provider Scanning Final Result documented in this encounter Visit Diagnoses Not on filedocumented in this encounter Care Teams Currency Exchange Specialist Relationship Specialty Start Date End Date Shaina Richard MD PCP - General Family Practice 12/12/19 05/29/22 Amy Hay MD PCP - General Family Practice 05/30/22 Luis Mcelroy MD Consulting Physician Bone Health 05/30/22 Tori Ornelas NP Nurse Practitioner Obstetrics and Gynecology 05/30/22 documented as of this encounter
--- OUTSIDE RECORDS SUMMARY | 2025-05-19 10:21 | XMS_ITS | Encounter Summary ---
Author Organization [facility] Address [address] [place] [address] Care Team Providers Care Tank Filler Name Role Phone Unavailable Primary Care Provider Unavailabl e Encounter Details Date Type Department Care Team (Late st Contact Info) Description 05/19/2024 Lab Requisition [facility] - DermPath Lab [address] [place] [id number] Barbra Cool PA [address] [place] [address] Social History Tobacco Use Types Packs/Day Years Used Date Smoking Tobacco: Never Assessed Comments Unknown Sex and Gender Information Value Date Recorded Sex Assigned at Not on file Legal Sex Female 8:31 AM CDT Gender Identity Not on file Sexual Orientation Not on file documented as of this encounter Plan of Treatment Not on file documented as of this encounter Procedures Procedure Name Priority Date/Time Associated Diagnosis Comments DERMATOPATHOLOGY Routine 05/19/2024 10:2 8 AM PROGRAM MANAGER documented in this encounter Results * DERMATOPATHOLOGY (05/19/2024 10:28 AM PROGRAM MANAGER) Case Report Dermatopathology Report Case: [id number] Authorizing Provider: Barbra Cool PA Collected: 05/19/2024 10:28 AM Ordering Location: [facility] - Received: 05/19/2024 02:50 PM DermPath Lab Pathologist: Dana Easton MD Specimen: Skin, right anterior scalp 12:15 PM PROGRAM MANAGER DERMATOPATHOLOGY LABORATORY Final Diagnosis Specimen A. 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 The specimen consists of a shave biopsy measuring 6x5x1 mm. Jar 0. 4 12:15 PM [facility] DERMATOPATHOLOGY LABORATORY Microscopic Description Specimen A. SKIN, right anterior scalp: The epidermis shows parakeratosis, full thickness disorderly maturation of keratinocytes, mitoses at different levels, and dyskeratotic cells.There is a column of marked compact hyperkeratosis. 4 12:15 PM [facility] DERMATOPATHOLOGY LABORATORY Disclaimer An external and internal positive and negative controls are appropriate for the histochemical, immunohistochemical and immunofluorescence stain(s) in this case (if any), except where stated explicitly. The performance characteristics of the stain(s) cited in this report were developed and its performance characteristic determined by the Dermatopathology Laboratory at [facility], directed by Dr. Alee Easton. These tests need not be, and therefore are not, approved by the [place] Food and Drug Administration. The tests are used for clinical purposes. Billing Codes Specimen Charges Stain Charges 53707 1 4 12:15 PM [facility] DERMATOPATHOLOGY LABORATORY Embedded Images 4 12:15 PM [facility] DERMATOPATHOLOGY LABORATORY Pathology/Cytolo gy TISSUE SPECIMEN FROM SKIN / Unknown 05/19/2024 10:28 AM PROGRAM MANAGER 05/19/2024 2:50 PM PROGRAM MANAGER us [facility] - PATHOLOGY/CYTOLOGY ORDERAB LES Final Result DERMATOPATHOLOGY LABORATORY [facility] - Department of Dermatology [address], [address] [phone] documented in this encounter Visit Diagnoses Not on filedocumented in this encounter
--- NOTE | 2025-06-28 08:53 | P.SLEEP_ITS ---
Sleep Study - Home Unattended Date of Study: 05/19/25 Ordering Provider: Louise Soria APRN Interpreting Provider: Riddhi Starks, DO Home Sleep Study Type: Watch PAT Height: 1.61 m Weight: 74.843 kg Body Mass Index: 28.8 Neck Circumference (inches): 13 [place]: 8 Reason for Sleep Study snoring Sleep History The patient is a 74-year-old female that had a sleep study ordered for evaluation of sleep apnea. The patient denies awakening from sleep short of breath. She denies awakening at night with heartburn, belching or cough. She occasionally snores but is rarely loud enough that others complain. She oc casionally has trouble sleeping when she has a cold. She denies waking up gasping for air throughout the night. She denies having breathing problems at night observed by herself or others. She rarely sweats excessively at night. She denies having heart palpitations or irregular heartbeats during the night. She occasionally falls asleep during the day but never while driving. She denies sleep paralysis, cataplexy and hypnagogic/ hypnopompic hallucinations. She denies feeling afraid of going to sleep. She rarely has nightmares. She rarely remembers her dreams. She frequently has thoughts racing through her mind. She rarely feels sad or depressed. She frequently has anxiety. She rarely has muscular tension. She denies noticing parts of her body jerk. She denies kicking during the night. She occasionally has crawling and aching feelings in her legs and occasionally has leg pain during the night. She denies grinding her teeth during sleep and denies awakening with morning jaw pain. She has rarely bothered by pain during the day and rarely awakened by pain during the night. She occasionally wakes up feeling stiff in the morning. She occasionally wakes up with sore or achy muscles. She occasionally wakes up with pain in the neck, spine and other joints. She goes to bed between 11 to 11:30 p.m. every night. It takes her 30 minutes at minimum to fall asleep. She wakes up once throughout the night to urinate is able to fall back asleep within a few minutes. She wakes up between 5-6 a.m.. She typically gets 5-6 hours of sleep per night. She will stay in bed for 15 minutes after waking up in the morning. She currently lives with her . She denies consuming any caffeinated beverages within 2 hours of bedtime. She denies engaging in physical exercise before bedtime. She will read and watch television before falling asleep. She denies taking naps in afternoon or the evening. She consumes 2 cups of coffee per day. She quit smoking cigarettes over 40 years ago. She will occasionally consume a glass of wine. She denies recreational drug use. COUNT INCLUDES THE [facility] Family History Family History Grandparent Family history of malignant neoplasm Mother Depression Social History Social History Social History: Caffeine-coffee daily Smoking packs per day: 1 Smoking cigarettes per day: 20.0 Years smoked: 10 Smoking pack-years: 10.00 Smoking status: Former smoker Tobacco type: cigarettes Second hand tobacco smoke exposure: No Smoking end date: 06/17/82 Alcohol intake: current Alcohol use details: 1-wine on occasion Substance use: never Substance use type: does not use Living arrangements: with family Spiritual care concerns: No Medications Home Medications ?Medication ?Instructions ?Recorded ?Confirmed ?Type magnesium 400 mg PO DAILY 10/29/22 History atorvastatin 10 mg tablet 10 mg PO QHS 03/15/25 History cetirizine 10 mg tablet (Allergy 10 mg PO DAILY #90 ta bs 03/15/25 05/03/25 Rx Relief (cetirizine)) cholecalciferol (vitamin D3) 25 25 mcg PO DAILY 05/03/25 History mcg (1,000 unit) capsule fluticasone propionate 50 1 spray intranasal BID #16 g shane 03/15/25 05/03/25 Rx mcg/actuation nasal spray,suspension (Flonase Allergy Relief) teriparatide 20 mcg/dose (560 20 mcg subcut QHS 05/03/25 History mcg/2.24 mL) subcutaneous pen injector Sleep Procedure The sleep study was completed using [employer]out[employer] a technically adequate device with seven channels: peripheral arterial tone, actigraphy, body position, snore, respiratory movement, pulse oximetry, sleep staging, and heart rate. Prior to using the device, the patient received verbal and written instructions for its application and was provided with the help desk phone number for additional telephonic instruction with 24-hour availability of qualified personnel to answer questions. The study was scored using [facility] guidelines. Sleep Architecture The total recording time is 7 hrs, 29 min. The total sleep time is 6 hrs, 53 min. Sleep latency is 24 minutes. REM latency is 216 minutes. The patient had 2 episodes of waking. Sleep architecture shows 11.7% deep sleep, 63.1% light sl eep, and (as % Total Sleep Time) showed NREM (Light 63.1%; Deep 11.7%), and a 25.2% stage REM. The patient spent 0.2% of total sleep time in the supine position. Sleep efficiency was 91.98. Respiratory Analysis The overall AHI (pAHI 4%:) is 2.3. The overall AHI (pAHI 3%:) is 3.9. The central AHI is 0.6. The AHI was 3.9 in NREM and 4.1 in REM sleep. The AHI was N/A in Supine and 3.9 in Non-supine sleep. Percent of Figueroa Marie respirations is 0.0. Oximetry Data The oxygen desaturation index (VAUGHN 4%:) is 1.0. The mean saturation is 94%, and the lowest saturation is 89%. Time spent with saturation < 88% is 0.0 minutes. Snoring Profile Snoring average intensity is 41 dB. The patient snored above 45 decibels for 36.3 minutes, 8.8% of sleep time. Cardiac Profile The average pulse rate is 75 beats per minutes. The lowest pulse rate is 58 bpm. The highest pulse rate reported is 107 bpm. Atrial fibrillation was not detected. Premature beats occur <0.1 per minute. Assessment and Plan Assessment and Plan (1) Sleep disturbances: Code(s): G47.9 - Sleep disorder, unspecified Status: Acute Assessment and Plan: The patient had an overall AHI of 2.3 with desaturation down to 89%. This is not consistent with sleep-disordered breathing. If there is further concern for a sleep disorder, I recommend that the patient have a split study with the use of a hypnotic to ensure we obtain enough sleep data. Data The data obtained during this sleep study is adequate for interpretation. Certification This sleep study has been reviewed by a board certified sleep medicine physician.
[2025-06-28 15:44] VITALS: BMI 28.8
== END 2025-06-04 13:13 | disposition home or self-care (01) ==
PROVIDERS: PCP Family Medicine; Visit Provider Nurse Practitioner Family
DX: G47.33 Obstructive sleep apnea (adult) (pediatric) (principal); G47.9 Sleep disorder, unspecified
CPT/HCPCS: 95800